=== PATIENT | male | born 1955 | race Two or more races ===

== ENCOUNTER 2022-03-18 19:12 | Emergency (ER) | payer OTHER ==
[~2022-03-18] VITALS: Ht 172.7 cm; Wt 49.9 kg
[2022-03-18] MEDS ORDERED: VITAMIN B-121000 MC4 (19:46)
[2022-03-18] MEDS ORDERED: VITAMIN A AND1 EACH (19:46)
[2022-03-19] MEDS ORDERED: DICLOFENAC POTA50 MG PO (04:55)
[2022-03-19] MEDS ORDERED: NORFLEX100MG PO (04:55)
== END 2022-03-19 05:05 | disposition home or self-care (01) ==
LOC: ER 19:12
DX: R42 Dizziness and giddiness (principal); R31.9 Hematuria, unspecified; R63.0 Anorexia; Z20.822 Contact with and (suspected) exposure to COVID-19

== ENCOUNTER 2022-03-21 11:36 | Inpatient (IN) | payer OTHER ==
[~2022-03-21] VITALS: Ht 170.2 cm; Wt 44.0 kg
[~2022-03-21 11:36] MED LIST: DICLOFENAC POTA50 MG PO; NORFLEX100MG PO; VITAMIN A AND1 EACH; VITAMIN B-121000 MC4
--- NOTE | 2022-03-21 12:31 | NUR ---
SE RECIEBE PTE ALERTA Y ORIENTADO X3 CUAL REFIERE CAIDA KT EN CHUNG HOGAR AL PERDER CONOCIMIENTO, REFIERE DEBILIDAD GENEREAL. SE AYESHA S/V Y SE UBICA.
--- NOTE | 2022-03-21 12:32 | NUR ---
PTE DE DR.LUIS HOGAN
--- NOTE | 2022-03-21 13:39 | NUR ---
SE REALIZAN MUESTRAS DE BRISEYDA ADMINISTRACION DE MEDICAMENTOS Y Y SE REALIZA ADMINISTRACION DE TERAPIA INTRAVENOSA. PACIENTE SE MANTIENE EN OBSERVACION EN ESPERA DE ENTREGAR ORINA. PACIENTE EN COMPANIA DE FAMILIAR. PACIENTE SE ORIENTA Y A FAMILIAR OSBRE LAS ORDENES DE ENFERMERIA.
--- NOTE | 2022-03-21 13:59 | NUR ---
SE REALIZA EKG
[2022-04-01] MEDS ORDERED: LOSARTAN POTASS25 MG PO (15:15)
[2022-04-01] MEDS ORDERED: PANTOPRAZOLE SO40 MG PO (15:15)
[2022-04-01] MEDS ORDERED: CARBIDOPA-LEVO1 EA11 PO (15:15)
[2022-04-01] MEDS ORDERED: LEVOTHYROXINE25 MCG PO (15:15)
[2022-04-01] MEDS ORDERED: TOPROL XL25 M1 PO (15:15)
[2022-04-01] MEDS ORDERED: VITAMIN D3125 MC2 PO (15:15)
[2022-04-01] MEDS ORDERED: THIAMINE HCL100 MG PO (15:15)
== END 2022-04-01 16:43 | DRG 57 ==
LOC: ER 11:36 → MEDI 18:04 → MEDJ 03-22 15:01
PROVIDERS: ADMIT Internal Medicine; ATTEND Internal Medicine
PROC: BW28ZZZ Computerized Tomography (CT Scan) of Head (ICD-10-PCS; 2022-03-21)
PROC: BW38ZZZ Magnetic Resonance Imaging (MRI) of Head (ICD-10-PCS; 2022-03-21)
PROC: 4A12X4Z Monitoring of Cardiac Electrical Activity, External Approach (ICD-10-PCS; principal; 2022-03-22)
PROC: BW2FZZZ Computerized Tomography (CT Scan) of Neck (ICD-10-PCS; 2022-03-22)
PROC: BD11YZZ Fluoroscopy of Esophagus using Other Contrast (ICD-10-PCS; 2022-03-22)
PROC: B246YZZ Ultrasonography of Right and Left Heart using Other Contrast (ICD-10-PCS; 2022-03-23)
PROC: 4A12XM4 Monitoring of Cardiac Stress, External Approach (ICD-10-PCS; 2022-03-25)
PROC: BW40ZZZ Ultrasonography of Abdomen (ICD-10-PCS; 2022-03-25)
DX: G20 Parkinson's disease (principal); M62.82 Rhabdomyolysis; F32.0 Major depressive disorder, single episode, mild; N39.0 Urinary tract infection, site not specified; G70.89 Other specified myoneural disorders; E86.0 Dehydration; R77.8 Other specified abnormalities of plasma proteins; Z20.822 Contact with and (suspected) exposure to COVID-19
CPT/HCPCS: 70551